=== PATIENT | male | born 1985 | race Caucasian/White ===

== ENCOUNTER 2022-12-08 20:37 | Emergency (ER) | payer OTHER ==
[2022-12-08 20:52] VITALS: BP 147/90; PULSE 83
[2022-12-08 21:41] LABS: ANION GAP 16.9 mEq/L (7-13); CHLORIDE,CL 101 mmol/L (98-107); SODIUM,NA 139 mmol/L (136-145)
[2022-12-08 21:45] LABS: ACETAMINOPHEN 0 ug/mL (10-30 (Therapeutic)); ESTIMATED GFR 77 mL/min (>=60)
[2022-12-08 21:47] LABS: AMPHETAMINES,URINE NEGATIVE (NEGATIVE); BARBITURATES,URINE NEGATIVE (NEGATIVE); BENZODIAZEPINE,URINE NEGATIVE (NEGATIVE); MDMA (ECSTASY), URINE NEGATIVE (NEGATIVE); METHADONE,URINE NEGATIVE (NEGATIVE); METHAMPHETAMINES,URINE NEGATIVE (NEGATIVE); OPIATES,URINE NEGATIVE (NEGATIVE); OXYCODONE,URINE NEGATIVE (NEGATIVE); PHENCYCLIDINE,URINE NEGATIVE (NEGATIVE); TCA,URINE NEGATIVE (NEGATIVE)
[2022-12-08 22:11] LABS: CORONAVIRUS COVID-19 NAA NEGATIVE (NEGATIVE)
[2022-12-08] MEDS ORDERED: Omeprazole 20 MG Cap.CR PO ONE (22:18)
== END 2022-12-08 22:24 | disposition home or self-care (01) ==
LOC: DL.ED 20:37
DX: K27.9 Peptic ulcer, site unspecified, unspecified as acute or chronic, without hemorrhage or perforation (principal); Z88.0 Allergy status to penicillin; Z72.0 Tobacco use; Z20.822 Contact with and (suspected) exposure to COVID-19
CPT/HCPCS: 0240U; 36415; 80053; 80143; 80179; 80305; 80307; 81003; 83605; 85025; 99283; 99284; A9270

== ENCOUNTER 2023-05-28 08:01 | Emergency (ER) | payer OTHER ==
[2023-05-28 08:21] VITALS: PULSE 83
== END 2023-05-28 08:39 | disposition home or self-care (01) ==
LOC: DL.ED 08:01
DX: M54.6 Pain in thoracic spine (principal); M62.830 Muscle spasm of back; Z88.0 Allergy status to penicillin; Z88.1 Allergy status to other antibiotic agents
CPT/HCPCS: 99283

== ENCOUNTER 2023-07-27 09:55 | Emergency (ER) | payer OTHER ==
[2023-07-27] MEDS ORDERED: Lidocaine 1% with EPINEPHrine 1:100,000 20 ML MDV INFILT ONE (10:10)
[2023-07-27] MEDS ORDERED: LORazepam 1 MG Tab PO ONE (10:11)
[2023-07-27] MEDS ORDERED: Bacitracin Oint 1 GM U/D Packet TOP ONE (10:11)
[2023-07-27 10:47] VITALS: BP 130/73; PULSE 97
== END 2023-07-27 11:04 | disposition home or self-care (01) ==
LOC: DL.ED 09:55
DX: S61.512A Laceration without foreign body of left wrist, initial encounter (principal); S66.922A Laceration of unspecified muscle, fascia and tendon at wrist and hand level, left hand, initial encounter; F41.9 Anxiety disorder, unspecified; Z88.0 Allergy status to penicillin; X78.1XXA Intentional self-harm by knife, initial encounter
CPT/HCPCS: 12002; 99283; 99284; A9270-GY; J3490

== ENCOUNTER 2024-04-07 11:45 | Emergency (ER) | payer OTHER, BC ==
[2024-04-07] MEDS ORDERED: Sodium Chloride 0.9% 10 ML Syringe FLUSH PRN (12:16)
[2024-04-07] MEDS: Iopamidol 612 MG/ML 100 ML Bottle IVPUSH ONE (12:16)
[2024-04-07 12:29] LABS: BASOPHILS PERCENT AUTO 0.2 % (0.0-1.0); EOSINOPHILS PERCENT AUTO 0.9 % (1.0-3.0); HEMATOCRIT 42.7 % (40.0-54.0); HEMOGLOBIN 14.7 g/dL (14.0-18.0); LYMPHOCYTES PERCENT AUTO 19.1 % (20.5-50.1); MEAN CORPUSCULAR HEMOGLOBIN 30.7 pg (27.0-34.0); MEAN CORPUSCULAR HGB CONC 34.4 g/dL (33.0-35.0); MEAN CORPUSCULAR VOLUME 89.1 fL (80-100); MONOCYTES PERCENT AUTO 7.8 % (2-8); PLATELET COUNT,PLT 269 10^3/uL (150-450); RED BLOOD CELL COUNT 4.79 10^6/uL (4.6-6.2)
[2024-04-07 12:49] LABS: A/G RATIO 1.1; ALBUMIN 3.9 g/dL (3.4-5.0); ANION GAP 11.1 mEq/L (7-13); BILIRUBIN TOTAL 0.5 mg/dL (0.2-1.0); BUN/CREATININE RATIO 10.3 (No establ ref range); CALCIUM 9.1 mg/dL (8.5-10.1); CREATININE 1.07 mg/dL (0.70-1.30); EST CRCL DRUG DOSING (CG) 95.38 mL/min; POTASSIUM,K 4.1 mmol/L (3.5-5.1); PROTEIN TOTAL,TP 7.3 g/dL (6.4-8.2)
[2024-04-07 13:12] VITALS: BP 125/78; PULSE 93
[2024-04-07] MEDS: Ketorolac 30 MG/ML SDV IVPUSH ONE (13:16)
== END 2024-04-07 13:52 | disposition home or self-care (01) ==
LOC: DL.ED 11:45
DX: S62.114A Nondisplaced fracture of triquetrum [cuneiform] bone, right wrist, initial encounter for closed fracture (principal); S50.02XA Contusion of left elbow, initial encounter; S50.812A Abrasion of left forearm, initial encounter; S30.810A Abrasion of lower back and pelvis, initial encounter; Z88.0 Allergy status to penicillin; V29.498A Other motorcycle driver injured in collision with other motor vehicles in traffic accident, initial encounter; Y93.55 Activity, bike riding; Y92.410 Unspecified street and highway as the place of occurrence of the external cause
CPT/HCPCS: 29125; 36415; 70450; 71260; 72125; 72128; 72131; 73070; 73100; 74177; 80053; 85025; 96374; 99283; 99284; J1885; Q9967

== ENCOUNTER 2024-04-11 16:19 | Emergency (ER) | payer SELFPAY ==
[2024-04-11 16:43] VITALS: BP 140/71; PULSE 92
[2024-04-11] MEDS: Take Home: Acetaminophen/HYDROcodone 325-5 MG, 5 Tab Pack PO ONE (17:29)
== END 2024-04-11 17:50 | disposition home or self-care (01) ==
LOC: DL.ED 16:19
DX: M95.8 Other specified acquired deformities of musculoskeletal system (principal); M25.522 Pain in left elbow; Z88.0 Allergy status to penicillin
CPT/HCPCS: 71046; 73000; 73080; 99283; A9270